=== PATIENT | male | born 1995 | race American Indian/Alaskan Native ===

== ENCOUNTER 2017-03-01 23:09 | Emergency (ER) | payer OTHER ==
[2017-03-01] MEDS ORDERED: TYLENOL ONE (23:42)
[2017-03-01] MEDS ORDERED: TYLENOL PO ONE (23:50)
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
[2017-03-02] MEDS ORDERED: FLEXERIL PO ONE (01:27)
[2017-03-02 02:00] VITALS: BP 158/79
== END 2017-03-02 02:02 | disposition home or self-care (01) ==
LOC: ED 23:09
DX: S46.812A Strain of other muscles, fascia and tendons at shoulder and upper arm level, left arm, initial encounter (principal); S16.1XXA Strain of muscle, fascia and tendon at neck level, initial encounter; V49.9XXA Car occupant (driver) (passenger) injured in unspecified traffic accident, initial encounter; Y93.89 Activity, other specified; Y99.9 Unspecified external cause status; Y92.410 Unspecified street and highway as the place of occurrence of the external cause
CPT/HCPCS: 99282